=== PATIENT | male | born 1970 ===

== ENCOUNTER 2019-05-18 06:36 | Day surgery (SDC) | payer BC ==
[2019-05-17 13:15] VITALS: BMI 23.1
[2019-05-18 11:50] VITALS: BP 107/74; PULSE 50; TEMP 97.5
--- NOTE | 2019-05-19 17:49 | PATH ---
Surgical Pathology Report Patient Name: ANNEMARIE TAYLOR [facility]. Rec. #: [id number] /Age/Gender: 1970 (Age: 48) / M Account: [id number] Location: [facility]-ENDOSCOPY Taken: 05/18/2019 Received: 05/18/2019 Reported: 05/19/2019 Physicians: Fito Villa M.D. Specimen(s) Received POLYP SPLENIC FLEXURE Clinical History Abdominal discomfort Postoperative diagnosis: Colon polyp Final Diagnosis COLON, SPLENIC FLEXURE, POLYP, BIOPSY: TUBULAR ADENOMA. Electronically Signed Najma Main M.D. Gross Description Received in formalin, labeled "polyp splenic flexure" is a phillips, irregular portion of soft tissue measuring 0.4 cm. in greatest dimension. The specimen is submitted in toto in one cassette. /05/18/201905/18/2019
== END 2019-05-18 09:22 | disposition home or self-care (01) ==
LOC: JASU-ENDO 06:36
PROVIDERS: ATTEND Internal Medicine Gastroenterology
PROC: 0DBL8ZX Excision of Transverse Colon, Via Natural or Artificial Opening Endoscopic, Diagnostic (ICD-10-PCS; principal; 2019-05-18 07:30)
DX: D12.3 Benign neoplasm of transverse colon (principal); R10.31 Right lower quadrant pain
CPT/HCPCS: 88305-TC